=== PATIENT | male | born 1965 | race Two or more races ===

== ENCOUNTER 2023-10-30 00:51 | Emergency (ER) | payer OTHER ==
[~2023-10-30] VITALS: Ht 185.4 cm; Wt 66.8 kg
[2023-10-30 01:50] LABS: Basophils # (auto) 0.1 10 ^3/uL (0-0.2); Basophils % (auto) 1.3 % (0.0-2.0); Eosinophils # (auto) 0.3 10 ^3/uL (0-0.8); Eosinophils % (auto) 3.8 % (0.0-7.0); Hematocrit 45.1 % (41.0-53.0); Hemoglobin 15.3 g/dL (13.5-17.5); Lymphocytes # (auto) 2.9 10 ^3/uL (0.4-5.4); Lymphocytes % (auto) 39.3 % (10.0-50.0); Mean Corpuscular Hemoglobin 30.2 pg (28.0-32.0); Mean Corpuscular Volume 88.9 fL (80.0-100.0); Monocytes # (auto) 0.9 10 ^3/uL (0-1.3); Monocytes % (auto) 12.2 % (0.0-12.0); Neutrophils # (auto) 3.2 10 ^3/uL (1.6-8.6); Neutrophils % (auto) 43.4 % (37.0-80.0); Nucleated Red Blood Cells % 0.2 %; Red Blood Cells 5.07 10^6/uL (4.5-5.90); Red Cell Distribution Width 13.7 % (11.8-14.3); White Blood Cell 7.4 10^3/uL (4.4-10.8)
[2023-10-30 01:58] LABS: Alanine Aminotransferase 17 U/L (7-40); Albumin 4.6 g/dL (3.2-4.8); Alkaline Phosphatase 75 U/L (46-116); Anion Gap 3 (5-15); Aspartate Aminotransferase 14 U/L (13-40); BUN/Creatinine Ratio 10.5 (10.0-20.0); Blood Urea Nitrogen 11 mg/dL (9-23); Calcium 10.2 mg/dL (8.7-10.4); Carbon Dioxide 36 mmol/L (20-30); Chloride 99 mmol/L (98-107); Glucose 110 mg/dL (74-106); Lipase 46 U/L (12-53); Potassium 3.3 mmol/L (3.5-5.1); Sodium 138 mmol/L (136-145)
[2023-10-30 01:59] LABS: Bilirubin, Total 0.6 mg/dL (0.2-1.0); Total Protein 7.6 g/dL (5.7-8.2)
[2023-10-30 03:12] LABS: Urine Bacteria FEW /hpf (None Seen); Urine Blood Negative /uL (Negative); Urine Clarity Clear (Clear); Urine Color Yellow (Yellow); Urine Protein, UAD 1+ (Negative); Urine Specific Gravity 1.019 (1.001-1.035); Urine Urobilinogen 4 mg/dL (Negative); Urine WBC <1 /hpf (0 - 3); Urine pH 8.5 (5.0-9.0)
[2023-10-30 05:45] VITALS: PULSE 71; RESP 18; O2SAT 96
[2023-10-30 05:58] VITALS: BP 118/95; PULSE 71; RESP 97; TEMP 98.2; O2SAT 97
[2023-10-30] MEDS: PANTOPRAZOLE 40 MG TAB PO ONE (06:10)
[2023-10-30] MEDS: MAALOX PLUS or MAALOX 30 ML PO ONE (06:11)
== END 2023-10-30 06:21 | disposition home or self-care (01) ==
LOC: ER 00:51
DX: K21.9 Gastro-esophageal reflux disease without esophagitis (principal); I10 Essential (primary) hypertension; F17.210 Nicotine dependence, cigarettes, uncomplicated; F12.10 Cannabis abuse, uncomplicated
CPT/HCPCS: 36415; 74176; 80053; 81001; 83690

== ENCOUNTER 2025-01-11 06:44 | Inpatient (IN) | payer OTHER ==
[~2025-01-11] VITALS: Ht 185.4 cm; Wt 62.0 kg
--- NOTE | 2025-01-11 07:50 | ED.PDOC ---
Musculoskeletal HPI Comments 59 year old male presents to the ED with a chief complaint of RT shoulder pain onset yesterday (01/10/25) around 18:00. Patient states he was doing exercise, when he began experiencing RT shoulder pain. Patient states he is able to move his hand, but not able to move shoulder due to pain, concerned for possible dislocation. PMHx HTN. Denies nausea, vomiting, diarrhea, trauma, fall, chest pain, shortness of breath, numbness/tingling. No other symptoms or modifying factors present at this time. Chief Complaint: Upper Extremity Time Seen by MD: 07:35 Reviewed Notes: Medications, Allergies Allergies: Coded Allergies: NO KNOWN ALLERGIES (Unverified , 10/30/23) Information Source: Patient Mode of Arrival: Ambulatory Location: Right Extremity Location: Shoulder Timing: Days Prehospital treatment: None Severity: Moderate Able to Move Extremity: Yes Bear Weight: Limited Pain: Moderate Mechanism: No Trauma Circumstances: Other Onset of Symptoms: During Exercise Symptoms: Pain DVT Risk Factors: NONE Associated signs and symptoms: Shoulder pain Past Medical History PAST MEDICAL HISTORY: HTN Surgical History (Other): brain surgery Family History Family History: Unknown Social History Smoker: Cigarettes Alcohol: Occasionally Drugs: Marijuana Lives In: Home Constitutional: denies: chills, diaphoresis, fatigue, fever, malaise, sweats, weakness, others EENTM: denies: blurred vision, double vision, ear bleeding, ear discharge, ear drainage, ear pain, ear ringing, eye pain, eye redness, hearing loss, mouth pain, mouth swelling, nasal discharge, nose bleeding, nose congestion, nose pain, photophobia, tearing, throat pain, throat swelling, voice changes, others Respiratory: denies: cough, hemoptysis, orthopnea, SOB at rest, shortness of breath, SOB with excertion, stridor, wheezing, others Cardiovascular: denies: chest pain, dizzy spells, diaphoresis, Dyspnea on exertion, edema, irregular heart beat, left arm pain, lightheadedness, palpitations, PND, syncope, others Gastrointestinal: denies: abdomen distended, abdominal pain, blood streaked bowels, constipated, diarrhea, dysphagia, difficulty swallowing, hematemesis, melena, nausea, poor appetite, poor fluid intake, rectal bleeding, rectal pain, vomiting, others Genitourinary: denies: burning, dysuria, flank pain, frequency, hematuria, incontinence, penile discharge, penile sore, pain, testicle pain, testicle swell ing, urgency, others Neurological: denies: dizziness, fainting, headache, left sided numbness, left sided weakness, numbness, paresthesia, pre-existing deficit, right sided numbness, right sided weakness, seizure, speech problems, tingling, tremors, weakness, others Musculoskeletal: reports: others (RT shoulder); denies: back pain, gout, joint pain, joint swelling, muscle pain, muscle stiffness, neck pain Integumetry: denies: bruises, change in color, change in hair/nails, dryness, laceration, lesions, lumps, rash, wounds, others Allergic/Immunocompromised: denies: Difficulty Healing, Frequent Infections, Hives, Itching, others Hematologic/Lymphatic: denies: anemia, blood clots, easy bleeding, easy bruising, swollen glands, others Endocrine: denies: excessive hunger, excessive sweating, excessive thirst, excessive urination, flushing, intolerance to cold, intolerance to heat, unexplained weight gain, unexplained weight loss, others Psychiatric: denies: anxiety, bipolar disorder, depression, hopeless, panic disorder, schizophrenia, sleepless, suicidal, others All Other Systems: Reviewed and Negative Physical Exam General Appearance: Moderate Distress, Normal HEENT: Normal ENT Inspection, Pharynx Normal, TMs Normal Neck: Full Range of Motion, Non-Tender, Normal, Normal Inspection Respiratory: Chest Non-Tender, Lungs Clear, No Accessory Muscle Use, No Respiratory Distress, Normal Breath Sounds Cardiovascular: No Edema, No JVD, No Murmur, No Gallop, Normal Peripheral Pulses, Regular Rate/Rhythm Breast Exam: Deferred Gastrointestinal: No Organomegaly, Non Tender, No Pulsatile Mass, Normal Bowel Sounds, Soft Genitalia: Deferred Pelvic: Deferred Rectal: Deferred Extremities: No calf tenderness, Normal capillary refill, Non-tender, No pedal edema, Other (Decreased range of motion of right upper extremity) Musculoskeletal : Apperance: Normal Neurologic: Alert, ciaio lumite injector II-XII nml as Tested, No Motor Deficits, Normal Affect, Normal Mood, No Sensory Deficits Cerebellar Function: Normal Reflexes: Normal Skin: Dry, Normal Color, Warm Peripheral Pulses: 3+ Radial (R), 3+ Radial (L) Lymphatic: No Adenopathy Was a procedure done? Was a procedure done?: No Differential Diagnosis EXT Differential Diagnosis: Sprain, Strain X-Ray, Labs, Meds, VS Vital Signs Date Time Temp Pulse Resp B/P (MAP) Pulse Ox O2 Delivery O2 Flow Rate FiO2 01/11/25 07:49 62 18 98 Room Air 01/11/25 07:49 62 18 160/119 (133) 98 01/11/25 06:46 98.8 70 16 164/117 99 98.8 Current Medications Medications (Trade) Dose Ordered Sig/Ellen Route Start Time Stop Time Status Last Admin Acetaminophen/ Hydrocodone Bitart (Ronco 10/325MG Tab) 1 tab ONCE ONCE PO 01/11/25 07:45 01/11/25 07:46 DC 01/11/25 07:54 Patient alert. Came in because of right shoulder discomfort. Vitals stable. Answering questions. Was given Ronco. Blood pressure elevated. Was given clonidine. Continue monitoring. Time of 1ST Reevaluation: 08:05 Reevaluation 1ST: Unchanged Patient Education/Counseling: Diagnosis, Treatment, Prognosis Family Education/Counseling: No Family Present Departure 1 Departure Time of Disposition: 08:18 Impression: Primary Impression: Hypertensive emergency Disposition: ADMITTED INPATIENT Admit to: Med Surg Condition: Guarded Critical Care Note Critical Care Time?: Yes (90 min-critical care time only) Stability Stability form required: No Heart Score Heart Score: Heart Score Response (Comments) Value History N/A 0 EKG N/A 0 Age N/A 0 Risk Factors N/A 0 Troponin N/A 0 Total 0 I personally scribed for ZEFERINO DE DIOS MD ([email or web address]) on 01/11/25 at 07:50. Electronically submitted by Cari Lennon ([email or web address]). ZEFERINO DE DIOS MD Jan 11, 2025 07:50
[2025-01-11] MEDS: HYDROcodone-ACET 10/325MG TAB PO ONE (07:54)
--- NOTE | 2025-01-11 08:36 | DVH ---
EXAM: XY R SHOULDER 2+ VIEW XRAY CLINICAL INDICATION: pain TECHNIQUE: XY R SHOULDER 2+ VIEW XRAY Comparison: None FINDINGS/IMPRESSION: There is no evidence of acute fracture or dislocation. The visualized joint space is well maintained. The alignment is anatomical. There is no radiopaque foreign body.
[2025-01-11 09:06] LABS: Hematocrit 42.4 % (41.0-53.0); Hemoglobin 14.1 g/dL (13.5-17.5); Mean Corpuscular Hemoglobin 29.7 pg (28.0-32.0); Mean Corpuscular Volume 89.4 fL (80.0-100.0); Nucleated Red Blood Cells % 0.2 %
[2025-01-11 09:10] LABS: Sodium 141 mmol/L (136-145)
[2025-01-11 09:11] LABS: Anion Gap 5 (5-15); Carbon Dioxide 28 mmol/L (20-31)
[2025-01-11 09:12] LABS: Calcium 9.3 mg/dL (8.7-10.4); Chloride 108 mmol/L (98-107); Potassium 3.4 mmol/L (3.5-5.1)
[2025-01-11 09:16] LABS: Glucose 92 mg/dL (74-106)
[2025-01-11 09:17] LABS: BUN/Creatinine Ratio 7.1 (10.0-20.0); Blood Urea Nitrogen 6 mg/dL (9-23)
[2025-01-11] MEDS ORDERED: CHOL20003 PO (10:35)
[2025-01-11] MEDS ORDERED: NAP500T PO (10:35)
[2025-01-11] MEDS ORDERED: ENAL1TAB48 PO (10:35)
[2025-01-11] MEDS ORDERED: DOCUSATE SOD 100 MG CAP PO PRN ×2 (11:15→11:30)
[2025-01-11] MEDS ORDERED: HYDROcodone-ACET 5/325MG TAB PO PRN (11:15)
[2025-01-11] MEDS ORDERED: MORPHINE SULFATE INJ 2 MG/ml SYRG IV PRN (11:15)
[2025-01-11] MEDS ORDERED: ACETAMINOPHEN 325 MG TAB PO PRN (11:15)
[2025-01-11] MEDS ORDERED: NITROGLYCERIN 0.4 MG SL TAB SL PRN ×2 (11:15→11:30)
[2025-01-11] MEDS ORDERED: ONDANSETRON HCL 4 MG/2 ML VIAL IV PRN ×2 (11:15→11:30)
[2025-01-11] MEDS ORDERED: MORPHINE SULFATE 4 MG/ML SYR/VIAL IV PRN (11:45)
[2025-01-11] MEDS ORDERED: PRAV20TA3 PO (11:55)
--- NOTE | 2025-01-11 12:03 | DVHHP2 ---
History of Present Illness Reason for Visit: Right arm pain History of Present Illness Nehemias Gagnon is a 59-year-old male with past medical history of hypertension and brain aneurysm with surgical clip in 2011, who came to the hospital for right shoulder pain. Patient states he was watching the [employer] game last night and was cheering, jumping, and moving around when he hurt his right arm. He states he came to the hospital today because the pain is severe this morning and he is having a difficult time moving his arm. While in the ER it was noticed that his blood pressure is elevated. Patient states he did take his morning blood pressure medications prior to coming to the hospital. Patient was given PO BP medications without any improvement. 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 Cardiovascular: HTN Past Surgical History: Other (brain aneurysm with surgical clip in 2011) Smoke: <1 pack per day ALCOHOL: heavy (2-3 beers/day) Drugs: None Lives: with Family Domestic Violence: Neg Review of Systems Constitutional: No: Fever, Chills, Sweats, Weakness, Malaise, Other Eyes: No: Pain, Vision change, Conjunctivae inflammation, Eyelid inflammation, Other, Redness ENT: No: Ear pain, Ear discharge, Nose pain, Nose discharge, Nose congestion, Mouth pain, Mouth swelling, Throat pain, Throat swelling, Other Respiratory: No: Cough, Dry, Shortness of breath, SOB with excertion, Wheezing, Hemoptysis, Pleuritic Pain, Sputum, Wheezing, Other Cardiovascular: No: Chest Pain, Palpitations, Orthopnea, Paroxysmal Noc. Dyspnea, Edema, Lt Headedness, Other Gastrointestinal: No: Nausea, Vomiting, Abdominal Pain, Diarrhea, Constipation, Melena, Hematochezia, Other Genitourinary: No Dysuria, No Frequency, No Incontinence, No Hematuria, No Retention, No Other Musculoskeletal: shoulder pain (right); No: other, neck pain, arm pain, back pain, hand pain, leg pain, foot pain Skin: No: Rash, Lesions, Jaundice, Bruising, Other Neurological: No: Weakness, Numbness, Incoordination, Change in speech, Confusion, Seizures, Other Allergies: Coded Allergies: NO KNOWN ALLERGIES (Unverified , 10/30/23) Medications Current Medications Medications Dose Ordered Sig/Ellen Route Start Time Stop Time Status Last Admin Dose Admin Sodium Chloride 10 ml Q8HR IV 01/11/25 14:00 UNV Acetaminophen/ Hydrocodone Bitart 1 tab Q4HP PRN PO 01/11/25 11:15 UNV Ondansetron HCl 4 mg Q4HP PRN IV 01/11/25 11:15 UNV Docusate Sodium 100 mg BIDPRN PRN PO 01/11/25 11:15 UNV Acetaminophen 650 mg Q6HP PRN PO 01/11/25 11:15 UNV Nitroglycerin 0.4 mg Q5MINP PRN SL 01/11/25 11:15 UNV Morphine Sulfate 2 mg Q30M PRN IV 01/11/25 11:15 UNV Exam Vital Signs Vital Signs Date Time Temp Pulse Resp B/P (MAP) Pulse Ox O2 Delivery O2 Flow Rate FiO2 01/11/25 09:08 53 18 179/130 (146) 98 01/11/25 07:49 Room Air 01/11/25 06:46 98.8 98.8 General Appearance: Alert, Oriented X3, Cooperative, No acute distress HEENT: Atraumatic, PERRLA, Mucous membr. moist/pink Respiratory: Clear to auscultation, Normal air movement Cardiovascular: Regular rate, Normal S1, Normal S2, No murmurs Abdominal: Normal bowel sounds, Soft, No tenderness, No hepatospenomegaly Extremities: No clubbing, No cyanosis, No edema, Normal pulses, Other (right shoulder pain and decreased ROM) Skin: No rashes, No breakdown Neuro: Normal gait, Normal speech, Strength at 5/5 X4 ext Psych/Mental Status: Mental status NL, Mood NL Labs/Xrays Labs Test 01/11/25 08:25 Range/Units White Blood Count 5.0 4.4-10.8 10^3/uL Red Blood Count 4.74 4.5-5.90 10^6/uL Hemoglobin 14.1 13.5-17.5 g/dL Hematocrit 42.4 41.0-53.0 % Mean Corpuscular Volume 89.4 80.0-100.0 fL Mean Corpuscular Hemoglobin 29.7 28.0-32.0 pg Mean Corpuscular Hemoglobin Concent 33.2 32.0-36.0 g/dL Red Cell Distribution Width 14.5 H 11.8-14.3 % Platelet Count 312 140-450 10^3/uL Mean Platelet Volume 7.0 6.9-10.8 fL Neutrophils (%) (Auto) 48.7 37.0-80.0 % Lymphocytes (%) (Auto) 35.4 10.0-50.0 % Monocytes (%) (Auto) 10.9 0.0-12.0 % Eosinophils (%) (Auto) 3.9 0.0-7.0 % Basophils (%) (Auto) 1.1 0.0-2.0 % Neutrophils # (Auto) 2.4 1.6-8.6 10 ^3/uL Lymphocytes # (Auto) 1.8 0.4-5.4 10 ^3/uL Monocytes # (Auto) 0.5 0-1.3 10 ^3/uL Eosinophils # (Auto) 0.2 0-0.8 10 ^3/uL Basophils # (Auto) 0.1 0-0.2 10 ^3/uL Nucleated Red Blood Cells 0.2 % Sodium Level 141 136-145 mmol/L Potassium Level 3.4 L 3.5-5.1 mmol/L Chloride Level 108 H 98-107 mmol/L Carbon Dioxide Level 28 20-31 mmol/L Anion Gap 5 5-15 Blood Urea Nitrogen 6 L 9-23 mg/dL Creatinine 0.84 0.700-1.30 mg/dL Glomerular Filtration Rate Calc 101 >90 mL/min BUN/Creatinine Ratio 7.1 L 10.0-20.0 Serum Glucose 92 74-106 mg/dL Calcium Level 9.3 8.7-10.4 mg/dL Troponin I High Sensitivity 3 L </=54 ng/L EXAM: XY R SHOULDER 2+ VIEW XRAY FINDINGS/IMPRESSION: There is no evidence of acute fracture or dislocation. The visualized joint space is well maintained. The alignment is anatomical. There is no radiopaque foreign body. SEPSIS Sepsis Screen Date sepsis recognized/suspect: Jan 11, 2025 Time Sepsis recognized/suspect: 647 Recent Procedure: No On Antibiotic Therapy: No Respiratory Rate >20: No Heart Rate >90: No Temp<36 C (96.8 F) or >38.3 C: No SBP <90 or MAP <65 mmHG: No New Acute Mental Status Change: No Is the patient on CPAP, BIPAP,: No Physician Orders R Shoulder 2+ View Xray (01/11/25 07:44) Admit (01/11/25 11:05) Code Status (01/11/25 11:05) 2 Gm Sodium Diet (01/11/25 Lunch) Sodium Chloride Lock (Saline Lock Ns) (01/11/25 14:00) Hydrocodone-Acet 5/325mg Tab (Eden 5/32 (01/11/25 11:15) Ondansetron Hcl (Zofran) (01/11/25 11:15) Docusate Sodium Capsule (Colace Capsule) (01/11/25 11:15) Complete Blood Count (01/12/25 04:00) Comprehensive Metabolic Panel (01/12/25 04:00) Echo 2d Mode Cardiac Dop (01/11/25 11:05) Condition: Serious (01/11/25 11:05) Acetaminophen Tablet (Tylenol Tablet) (01/11/25 11:15) Nitroglycerin Sublingual (Ntrostat Subli (01/11/25 11:15) Morphine Sulfate Injection (01/11/25 11:15) Stat Ekg For Chest Pain (01/11/25 11:05) Notify Md Of Changes From Base (01/11/25 11:05) Process Automation Engineer For 24 Hours (01/11/25 11:05) Emergency Dysrhythmia Protocol (01/11/25 11:05) Rhythm Strips Once Every Shift (01/11/25 11:05) Oxygen By Nasal Cannula (01/11/25 11:05) Vital Signs Date Time Temp Pulse Resp B/P (MAP) Pulse Ox O2 Delivery O2 Flow Rate FiO2 01/11/25 09:08 53 18 179/130 (146) 98 01/11/25 08:39 172/132 01/11/25 07:49 62 18 98 Room Air 01/11/25 07:49 62 18 160/119 (133) 98 01/11/25 06:46 98.8 70 16 164/117 99 98.8 Laboratory Tests Test 01/11/25 08:25 White Blood Count 5.0 10^3/uL (4.4-10.8) Medications Medications Dose Ordered Sig/Ellen Route Start Time Stop Time Status Last Admin Dose Admin Acetaminophen/ Hydrocodone Bitart 1 tab ONCE ONCE PO 01/11/25 07:45 01/11/25 07:46 DC 01/11/25 07:54 1 TAB Clonidine HCl 0.2 mg ONCE ONCE PO 01/11/25 08:30 01/11/25 08:31 DC 01/11/25 08:39 0.2 MG Assessment/Plan Assessment/Plan Assessment: Hypertensive emergency, Hyperlipidemia, Plan: Admit to Tele, ECHO, PRN antihypertensives, Consider cardiology consult if symptoms worsen, Home medications reconciled, Plan discussed with: Patient, Spouse My Orders Orders - SCOTT BROWN Procedure Category Date Status Time Admit ADMIT 01/11/25 Transmitted 11:05 Code Status CODE 01/11/25 Transmitted 11:05 2 Gm Sodium Diet DIET 01/11/25 Transmitted Lunch Sodium Chloride Lock PHA 01/11/25 Logged (Saline Lock Ns) 14:00 Hydrocodone-Acet PHA 01/11/25 Logged 5/325mg Tab (Eden 11:15 Ondansetron Hcl PHA 01/11/25 Logged (Zofran) 11:15 Docusate Sodium [facility] 01/11/25 Logged Capsule (Colace 11:15 Complete Blood Count LAB 01/12/25 Verified 04:00 Comprehensive LAB 01/12/25 Verified Metabolic Panel 04:00 Echo 2d Mode Cardiac US 01/11/25 Logged DOP 11:05 Condition: Serious [facility] 01/11/25 In Process 11:05 Acetaminophen Tablet [facility] 01/11/25 Logged (Tylenol Tablet) 11:15 Nitroglycerin PHA 01/11/25 Logged Sublingual (Ntrostat 11:15 Morphine Sulfate PHA 01/11/25 Logged Injection 11:15 Stat Ekg For Chest [facility] 01/11/25 In Process Pain 11:05 Notify Md Of Changes [facility] 01/11/25 In Process From Base 11:05 Process Automation Engineer For [facility] 01/11/25 In Process 24 Hours 11:05 Emergency Dysrhythmia [facility] 01/11/25 In Process Protocol 11:05 Rhythm Strips Once [facility] 01/11/25 In Process Every Shift 11:05 Oxygen By Nasal RT 01/11/25 Transmitted Cannula 11:05 Date of Service: Jan 11, 2025 Billing Provider: SCOTT BROWN Common Visit Codes: [id number] INP/OBS CARE (MOD) SCOTT BROWN Jan 11, 2025 12:03
[2025-01-11 12:08] VITALS: PULSE 74; RESP 20; O2SAT 94
[2025-01-11 12:20] VITALS: BP 128/94; PULSE 46; RESP 14; TEMP 98; O2SAT 100
[2025-01-11 13:00] VITALS: BP 115/84; PULSE 52; RESP 16; TEMP 98.4; O2SAT 100
[2025-01-11] MEDS: SODIUM CHLOR 0.9% PF (SALINE LOCK) 10ML VIAL/SYR IV SCH (13:27)
[2025-01-11] MEDS ORDERED: SODIUM CHLOR 0.9% PF (SALINE LOCK) 10ML VIAL/SYR IV SCH (14:00)
[2025-01-11] MEDS: HYDROcodone-ACET 5/325MG TAB PO PRN (14:57)
[2025-01-11] MEDS: PRAVASTATIN SODIUM 20 MG TAB PO SCH (18:37)
[2025-01-11 20:56] VITALS: BP 134/99; PULSE 49; RESP 14; TEMP 97.9; O2SAT 98
[2025-01-11 22:09] VITALS: BP 145/101; PULSE 45; RESP 16; TEMP 98.1; O2SAT 100
[2025-01-11] MEDS: ENALAPRIL MALEATE 10 MG TAB PO SCH (22:59)
[2025-01-12] VITALS (8 sets, daily range): BP systolic 132–166; BP diastolic 12–113; PULSE 42–98; RESP 12–19; TEMP 97–98.6; O2SAT 94–100
[2025-01-12 06:16] LABS: Hematocrit 37.4 % (41.0-53.0); Hemoglobin 12.6 g/dL (13.5-17.5); Mean Corpuscular Hemoglobin 29.8 pg (28.0-32.0); Mean Corpuscular Volume 88.2 fL (80.0-100.0); Nucleated Red Blood Cells % 0.1 %
[2025-01-12 06:39] LABS: Alanine Aminotransferase 10 U/L (7-40); Albumin 3.8 g/dL (3.2-4.8); Alkaline Phosphatase 61 U/L (46-116); Anion Gap 5 (5-15); BUN/Creatinine Ratio 11.1 (10.0-20.0); Bilirubin, Total 1.0 mg/dL (0.2-1.0); Calcium 8.9 mg/dL (8.7-10.4); Carbon Dioxide 28 mmol/L (20-31); Glucose 92 mg/dL (74-106); Sodium 142 mmol/L (136-145); Total Protein 6.4 g/dL (5.7-8.2)
[2025-01-12 06:40] LABS: Blood Urea Nitrogen 9 mg/dL (9-23); Chloride 109 mmol/L (98-107); Potassium 3.4 mmol/L (3.5-5.1)
[2025-01-12] MEDS: CHOLECALCIFEROL (VITD3) 1,000UNIT=25mCg TAB PO SCH (09:36)
--- NOTE | 2025-01-12 10:53 | DVHPN2 ---
Subjective The patient seen and examined at bedside. Still complains of right shoulder pain.Blood pressure still not controlled well despite on HTN meds. Reviewed: Care Plan, H&P, Labs, Medications, Previous Orders, Radiology Changes from previous H/P or p: No Changes Eyes: No Pain, No Vision change, No Conjunctivae inflammation, No Eyelid inflammation, No Other, No Redness ENT: No Ear pain, No Ear discharge, No Nose pain, No Nose discharge, No Nose congestion, No Mouth pain, No Mouth swelling, No Throat pain, No Throat swelling, No Other Cardiovascular: No Chest Pain, No Palpitations, No Orthopnea, No Paroxysmal Noc. Dyspnea, No Edema, No Lt Headedness, No Other Respiratory: No Cough, No Dry, No Shortness of breath, No SOB with excertion, No Wheezing, No Hemoptysis, No Pleuritic Pain, No Sputum, No Other Gastrointestinal: No Nausea, No Vomiting, No Abdominal Pain, No Diarrhea, No Constipation, No Melena, No Hematochezia, No Other Genitourinary: No Dysuria, No Frequency, No Incontinence, No Hematuria, No Retention, No Other Musculoskeletal: No other, No neck pain; shoulder pain (right); No arm pain, No back pain, No hand pain, No leg pain, No foot pain Skin: No Rash, No Lesions, No Jaundice, No Bruising, No Other Objective Vitals Vital Signs Date Time Temp Pulse Resp B/P (MAP) Pulse Ox O2 Delivery O2 Flow Rate FiO2 01/12/25 09:35 134/97 01/12/25 09:00 98.3 54 16 95 98.3 01/12/25 08:00 Room Air* 0 21 General Appearance: Alert, Oriented X3, Cooperative, No acute distress HEENT: Atraumatic, PERRLA, EOMI, Mucous membr. moist/pink Neck: Supple Lungs: Clear to auscultation, Normal air movement Cardiovascular: Regular rate (rt), Normal S1, Normal S2, No murmurs, Gallops, R ubs Abdomen: Normal bowel sounds, Soft, No tenderness Neuro: Cranial nerves 3-12 NL Psych/Mental Status: Mental status NL Medications Current Medications Medications Dose Ordered Sig/Ellen Route Start Time Stop Time Status Last Admin Dose Admin Sodium Chloride 10 ml Q8HR IV 01/11/25 14:00 01/12/25 05:46 10 ML Ondansetron HCl 4 mg Q4HP PRN IV 01/11/25 11:30 Morphine Sulfate 2 mg Q30M PRN IV 01/11/25 11:45 Acetaminophen/ Hydrocodone Bitart 1 tab Q4HP PRN PO 01/11/25 11:30 01/11/25 23:00 1 TAB Docusate Sodium 100 mg BIDPRN PRN PO 01/11/25 11:30 Acetaminophen 650 mg Q6HP PRN PO 01/11/25 11:30 Nitroglycerin 0.4 mg Q5MINP PRN SL 01/11/25 11:30 Cholecalciferol 2,000 unit DAILY PO 01/12/25 10:00 01/12/25 09:36 2,000 UNIT Enalapril Maleate 20 mg BID PO 01/11/25 22:00 01/12/25 09:35 20 MG Clonidine HCl 0.1 mg Q6HP PRN PO 01/11/25 12:00 01/12/25 03:41 0.1 MG Pravastatin Sodium 20 mg QPM PO 01/11/25 18:00 01/11/25 18:37 20 MG Laboratory Results Laboratory Tests 01/12/25 05:46 Chemistry Test 01/12/25 05:46 Albumin 3.8 g/dL (3.2-4.8) Calcium Level 8.9 mg/dL (8.7-10.4) Total Protein 6.4 g/dL (5.7-8.2) LFT Test 01/12/25 05:46 Alanine Aminotransferase (ALT) 10 U/L (7-40) Alkaline Phosphatase 61 U/L (46-116) Aspartate Amino Transferase (AST) 15 U/L (13-40) Total Bilirubin 1.0 mg/dL (0.2-1.0) Labs and/or images reviewed: Labs reviewed by me Assessment/Plan Assessment/Plan Hypertensive emergency, Hyperlipidemia, Right shoulder pain Continuing continuing current management. Continuing with clonidine and lisinopril. I will add metoprolol 25 mg p.o. b.i.d. We will follow up with echo Continuing with pravastatin This medical document was created using an electronic medical record system with [employer] direct computerized dictation system. Although this document has been carefully reviewed, there may still be some phonetic and typographical errors. These areas are purely typographical due to imperfections of the software programs, and do not reflect any compromise in the patient's medical care. Plan discussed with: Patient Date of Service: Jan 12, 2025 Billing Provider: LAQUITA COMER MD Common Visit Codes: [id number] INP/OBS CARE(HIGH) LAQUITA COMER MD Jan 12, 2025 10:53
[2025-01-12] MEDS: IBUPROFEN 600 MG TAB PO ONE (12:53)
[2025-01-12] MEDS: METOPROLOL SUCCINATE XL 50 MG TAB PO SCH (23:10)
[2025-01-13 01:00] VITALS: BP 137/98; PULSE 45; RESP 18; TEMP 97.2; O2SAT 100
[2025-01-13 05:00] VITALS: BP 150/101; PULSE 49; RESP 18; TEMP 97.3; O2SAT 99
[2025-01-13] MEDS: ACETAMINOPHEN 325 MG TAB PO PRN (05:09)
[2025-01-13 06:04] LABS: Hematocrit 38.7 % (41.0-53.0); Hemoglobin 13.1 g/dL (13.5-17.5); Mean Corpuscular Hemoglobin 29.6 pg (28.0-32.0); Mean Corpuscular Volume 87.9 fL (80.0-100.0); Nucleated Red Blood Cells % 0.1 %
[2025-01-13 06:10] LABS: Calcium 9.2 mg/dL (8.7-10.4); Chloride 105 mmol/L (98-107); Potassium 3.6 mmol/L (3.5-5.1); Sodium 140 mmol/L (136-145)
[2025-01-13 06:11] LABS: Anion Gap 8 (5-15); Carbon Dioxide 27 mmol/L (20-31)
[2025-01-13 06:16] LABS: BUN/Creatinine Ratio 9.3 (10.0-20.0); Glucose 94 mg/dL (74-106)
[2025-01-13 06:35] LABS: Blood Urea Nitrogen 7 mg/dL (9-23)
[2025-01-13 08:00] VITALS: PULSE 43; PULSE 46; RESP 17; O2SAT 97
[2025-01-13 08:38] VITALS: BP 145/103; PULSE 46; RESP 17; TEMP 97.9; O2SAT 97
--- NOTE | 2025-01-13 09:25 | DVHSR ---
APPROVED REPORT EXAM: Two-dimensional and M-mode echocardiogram with Doppler and color Doppler. Blood Pressure: 148/98 mmHg INDICATION Hypertension RISK FACTORS Height: 6'1", Weight: 136 DIMENSIONS LVDd4.6 (3.8-5.7cm)LA (2D)3.9 (1.9-4.0cm)Aortic Root3.6 (2.0-3.7cm) LVDs2.8 (2.5-4.0cm)LA (MM) (1.9-4.0cm)Aortic Cusp Exc2.4 (1.5-2.0cm) EF (%) 69.0 (55-70%)Rt. Atrium5.1 (1.9-4.0cm)Asc. Aorta3.9 cm IVSd1.2 (0.7-1.1cm)RV (D)4.4 (1.8-2.4cm) PWd0.8 (0.7-1.1cm) Mitral Valve MitralMitral Stenosis E wave0.60m/sMV Mean GR.mmHg A wave0.67m/sMV Peak GR.mmHg E/A ratio0.92D MVAcm2 DECEL [id number] 1/2 Timems Aortic Valve Aortic ValveAortic Stenosis V11.13m/Jovan Mean GR.4mmHg V21.37m/Jovan Peak GR.8mmHg LVOT Diameter2.3 (1.8-2.4cm)Doppler AVA3.43cm2 Pulmonic Valve V20.75m/s Tricuspid Valve TR Velocity2.30m/s [id number] Conclusion LV EF IS 70% AND IS NORMAL MVP NORMAL TV,PV AND AORTIC VALVE NORMAL RV FUNCTION NO EFFUSION
--- NOTE | 2025-01-13 12:49 | DVHPN2 ---
Reviewed: Care Plan, H&P, Labs, Medications, Previous Orders, Radiology Changes from previous H/P or p: No Changes General: Per HPI Eyes: No Pain, No Vision change, No Conjunctivae inflammation, No Eyelid inflammation, No Other, No Redness ENT: No Ear pain, No Ear discharge, No Nose pain, No Nose discharge, No Nose congestion, No Mouth pain, No Mouth swelling, No Throat pain, No Throat swelling, No Other Cardiovascular: No Chest Pain, No Palpitations, No Orthopnea, No Paroxysmal Noc. Dyspnea, No Edema, No Lt Headedness, No Other Respiratory: No Cough, No Dry, No Shortness of breath, No SOB with excertion, No Wheezing, No Hemoptysis, No Pleuritic Pain, No Sputum, No Other Gastrointestinal: No Nausea, No Vomiting, No Abdominal Pain, No Diarrhea, No Constipation, No Melena, No Hematochezia, No Other Genitourinary: No Dysuria, No Frequency, No Incontinence, No Hematuria, No Retention, No Other Musculoskeletal: No other, No neck pain; shoulder pain (right); No arm pain, No back pain, No hand pain, No leg pain, No foot pain Skin: No Rash, No Lesions, No Jaundice, No Bruising, No Other Objective Vitals Vital Signs Date Time Temp Pulse Resp B/P (MAP) Pulse Ox O2 Delivery O2 Flow Rate FiO2 01/13/25 10:37 46 145/103 01/13/25 08:38 97.9 17 97 97.9 01/13/25 08:00 Room Air* 0 21 Intake/Output Intake and Output 01/13/25 07:00 Intake Total 1520 ml Balance 1520 ml Intake Oral 1520 ml # Voids 6 General Appearance: Alert, Oriented X3, Cooperative, No acute distress HEENT: Atraumatic, PERRLA, EOMI, Mucous membr. moist/pink Neck: Supple Lungs: Clear to auscultation, Normal air movement Cardiovascular: Regular rate (rt), Normal S1, Normal S2, No murmurs, Gallops, R ubs Abdomen: Normal bowel sounds, Soft, No tenderness Neuro: Cranial nerves 3-12 NL Psych/Mental Status: Mental status NL Medications Current Medications Medications Dose Ordered Sig/Ellen Route Start Time Stop Time Status Last Admin Dose Admin Sodium Chloride 10 ml Q8HR IV 01/11/25 14:00 01/13/25 10:37 10 ML Ondansetron HCl 4 mg Q4HP PRN IV 01/11/25 11:30 Morphine Sulfate 2 mg Q30M PRN IV 01/11/25 11:45 Acetaminophen/ Hydrocodone Bitart 1 tab Q4HP PRN PO 01/11/25 11:30 01/12/25 23:12 1 TAB Docusate Sodium 100 mg BIDPRN PRN PO 01/11/25 11:30 Acetaminophen 650 mg Q6HP PRN PO 01/11/25 11:30 01/13/25 05:09 650 MG Nitroglycerin 0.4 mg Q5MINP PRN SL 01/11/25 11:30 Cholecalciferol 2,000 unit DAILY PO 01/12/25 10:00 01/13/25 10:36 2,000 UNIT Enalapril Maleate 20 mg BID PO 01/11/25 22:00 01/13/25 10:36 20 MG Clonidine HCl 0.1 mg Q6HP PRN PO 01/11/25 12:00 01/13/25 05:11 0.1 MG Pravastatin Sodium 20 mg QPM PO 01/11/25 18:00 01/12/25 18:01 20 MG Metoprolol Succinate 25 mg BID PO 01/12/25 22:00 01/13/25 10:37 25 MG Laboratory Results Laboratory Tests 01/13/25 05:32 Chemistry Test 01/13/25 05:32 Calcium Level 9.2 mg/dL (8.7-10.4) Labs and/or images reviewed: Labs reviewed by me, Image(s) reviewed by me Assessment/Plan Assessment/Plan Nehemias Gagnon Crystal is a 59-year-old male with past medical history of hypertension and brain aneurysm with surgical clip in 2011, who came to the hospital for right shoulder pain. Patient states he was watching the [employer] game last night and was cheering, jumping, and moving around when he hurt his right arm. He states he came to the hospital today because the pain is severe this morning and he is having a difficult time moving his arm. While in the ER it was noticed that his blood pressure is elevated. Patient states he did take his morning blood pressure medications prior to coming to the hospital. Patient was given PO BP medications without any improvement. Patient states he does not follow up with a chairman president and chief executive officer, just his primary care provider. Hypertensive emergency, Hyperlipidemia, Right shoulder pain Continuing continuing current management. Continuing with clonidine and lisinopril. I will add metoprolol 25 mg p.o. b.i.d. We will follow up with echo Continuing with pravastatin Plan discussed with: Patient Date of Service: Jan 13, 2025 Billing Provider: KATELYN WALKER DO Common Visit Codes: [id number] INP/OBS CARE(HIGH) KATELYN WALKER DO Jan 13, 2025 12:49
--- NOTE | 2025-01-18 21:09 | DVHDS2 ---
Discharge Summary Date of Admission Jan 11, 2025 at 11:05 Date of Discharge: Jan 13, 2025 Labs/Diagnostic Data: Laboratory Results Test 01/13/25 05:32 01/12/25 05:46 01/11/25 08:25 White Blood Count 4.4 10^3/uL (4.4-10.8) Red Blood Count 4.40 10^6/uL (4.5-5.90) Hemoglobin 13.1 g/dL (13.5-17.5) Hematocrit 38.7 % (41.0-53.0) Mean Corpuscular Volume 87.9 fL (80.0-100.0) Mean Corpuscular Hemoglobin 29.6 pg (28.0-32.0) Mean Corpuscular Hemoglobin Concent 33.7 g/dL (32.0-36.0) Red Cell Distribution Width 14.4 % (11.8-14.3) Platelet Count 289 10^3/uL (140-450) Mean Platelet Volume 6.7 fL (6.9-10.8) Neutrophils (%) (Auto) 34.4 % (37.0-80.0) Lymphocytes (%) (Auto) 48.0 % (10.0-50.0) Monocytes (%) (Auto) 13.3 % (0.0-12.0) Eosinophils (%) (Auto) 3.8 % (0.0-7.0) Basophils (%) (Auto) 0.5 % (0.0-2.0) Neutrophils # (Auto) 1.5 10 ^3/uL (1.6-8.6) Lymphocytes # (Auto) 2.1 10 ^3/uL (0.4-5.4) Monocytes # (Auto) 0.6 10 ^3/uL (0-1.3) Eosinophils # (Auto) 0.2 10 ^3/uL (0-0.8) Basophils # (Auto) 0 10 ^3/uL (0-0.2) Nucleated Red Blood Cells 0.1 % Sodium Level 140 mmol/L (136-145) Potassium Level 3.6 mmol/L (3.5-5.1) Chloride Level 105 mmol/L (98-107) Carbon Dioxide Level 27 mmol/L (20-31) Anion Gap 8 (5-15) Blood Urea Nitrogen 7 mg/dL (9-23) Creatinine 0.75 mg/dL (0.700-1.30) Glomerular Filtration Rate Calc 105 mL/min (>90) BUN/Creatinine Ratio 9.3 (10.0-20.0) Serum Glucose 94 mg/dL (74-106) Calcium Level 9.2 mg/dL (8.7-10.4) Total Bilirubin 1.0 mg/dL (0.2-1.0) Aspartate Amino Transferase (AST) 15 U/L (13-40) Alanine Aminotransferase (ALT) 10 U/L (7-40) Alkaline Phosphatase 61 U/L (46-116) Total Protein 6.4 g/dL (5.7-8.2) Albumin 3.8 g/dL (3.2-4.8) Troponin I High Sensitivity 3 ng/L (</=54) Other Laboratory Tests 01/13/25 05:32 Brief Hx & Hospital Course: Nehemias Gagnon is a 59-year-old male with past medical history of hypertension and brain aneurysm with surgical clip in 2011, who came to the hospital for right shoulder pain. Patient states he was watching the [employer] last night and was cheering, jumping, and moving around when he hurt his right arm. He states he came to the hospital today because the pain is severe this morning and he is having a difficult time moving his arm. While in the ER it was noticed that his blood pressure is elevated. Patient states he did take his morning blood pressure medications prior to coming to the hospital. Patient was given PO BP medications without any improvement. Patient states he does not follow up with a applied mathematician, just his primary care provider. Hypertensive emergency, Hyperlipidemia, Right shoulder pain Continuing continuing current management. Continuing with clonidine and lisinopril. I will add metoprolol 25 mg p.o. b.i.d. We will follow up with echo Continuing with pravastatin pt left AMA Condition at Discharge: Fair Final Diagnosis/Problems List see above Discharge Disposition: AMA Discharge Instruct/Medications Scheduled Cholecalciferol (Vitamin D-3 Super Strengt), 1 TAB PO DAILY, (Reported) Enalapril Maleate (Enalapril Maleate), 1 TAB PO BID, (Reported) Naproxen (Naprosyn Tablet), 1 TAB PO BID, (Reported) Pravastatin Sodium (Pravachol Tablet), 1 TAB PO QPM, (Reported) Discharge Statement: "Patient was advised to return to the ER or call 911 if any headaches, dizziness, shortness of breath, chest pain, abdominal pain, bleeding, fevers, or worsening of medical condition. Patient was counseled about treatment plan, medications, possible side effects, patientverbalized understanding. All questions were answered to the best of my ability. This discharge took greater then 30 minutes in planning, reviewing documentation, counseling the patient, and discussing with other team members." ASSESSMENT ASSESSMENT Assessment Date of Service: Jan 13, 2025 Billing Provider: KATELYN WALKER DO Common Visit Codes: [id number] DISCH DAY >30min KATELYN WALKER DO Jan 18, 2025 21:09
== END 2025-01-13 11:52 | disposition left against medical advice (07) | DRG 199 ==
LOC: ER 06:44 → OVERFLOW 11:05 → ER 11:08 → TELE-EAST 22:09
PROVIDERS: ADMIT Internal Medicine; ATTEND Internal Medicine
DX: I16.1 Hypertensive emergency (principal); E78.5 Hyperlipidemia, unspecified; Z53.29 Procedure and treatment not carried out because of patient's decision for other reasons; F17.210 Nicotine dependence, cigarettes, uncomplicated; Z79.899 Other long term (current) drug therapy
CPT/HCPCS: 36415; 73030; 80048; 80053; 84484; 85025; 93306; 99291; 99292; G0378